=== PATIENT | male | born 1995 | race Two or more races ===

== ENCOUNTER 2020-06-09 01:49 | Emergency (ER) | payer MEDICAID ==
[~2020-06-09] VITALS: Ht 182.9 cm; Wt 68.2 kg
[2020-06-09] MEDS ORDERED: HYDR-4031 PO (02:03)
[2020-06-09] MEDS ORDERED: OLAN2.5T3 PO (02:03)
[2020-06-09] MEDS ORDERED: LORazepam 1 MG TABLET PO ONE (02:30)
[2020-06-09 03:29] LABS: COVID AG,FIA SOURCE NASOPHARYNGEAL
[2020-06-09 04:29] VITALS: BP 127/81
== END 2020-06-09 07:14 | disposition home or self-care (01) ==
LOC: EMS 01:51
DX: F15.10 Other stimulant abuse, uncomplicated (principal); M79.10 Myalgia, unspecified site; F20.9 Schizophrenia, unspecified; F17.210 Nicotine dependence, cigarettes, uncomplicated; F12.90 Cannabis use, unspecified, uncomplicated; Z20.822 Contact with and (suspected) exposure to COVID-19
CPT/HCPCS: 87426; 99283; U0003